=== PATIENT | male | born 1960 | race African-American/Black ===

== ENCOUNTER 2017-09-08 07:12 | Emergency (ER) | payer SELFPAY ==
[~2017-09-08] VITALS: Ht 185.4 cm; Wt 80.0 kg
[2017-09-08] MEDS ORDERED: MOTRIN400 MG PO (07:56)
[2017-09-08] MEDS ORDERED: VOLTAREN1%GEL TOP (07:56)
[2017-09-08 09:11] VITALS: BP 146/89
== END 2017-09-08 09:15 | disposition home or self-care (01) | DRG 556 ==
LOC: ED 07:12
DX: M25.561 Pain in right knee (principal); I10 Essential (primary) hypertension; F17.210 Nicotine dependence, cigarettes, uncomplicated

== ENCOUNTER 2018-07-20 09:17 | Emergency (ER) | payer SELFPAY ==
[~2018-07-20] VITALS: Ht 185.4 cm; Wt 67.0 kg
[~2018-07-20 09:17] MED LIST: MOTRIN400 MG PO; VOLTAREN1%GEL TOP
[2018-07-20 10:33] LABS: HEMATOCRIT 42.4 % (39.0-50.0); HEMOGLOBIN 14.3 g/dl (14.0-18.0); IMMATURE GRANULOCYTES 0.3 % (0.0-5.0); MEAN CELL VOLUME 90.8 fL CALC (80.0-100.0); MEAN CORPUSCULAR HGB 30.6 pG CALC (26.0-32.0); MEAN CORPUSCULAR HGB CONC 33.7 g/L CALC (32.0-36.0); NEUT# 3.88 thou/uL (1.82-7.42); RED BLOOD COUNT 4.67 mill/uL (4.70-6.10); RED CELL DISTRI WIDTH 13.8 % (11.5-15.5)
[2018-07-20 10:44] LABS: ANION GAP 15 (6-22 (CALC)); BUN 12 mg/dL (9-20); BUN/CREATININE RATIO 14 (12-20 (CALC)); CARBON DIOXIDE 23 mmol/l (22-30); CHLORIDE 105 mmol/l (95-108); CREATININE 0.9 mg/dL (0.7-1.3); GFR > 60 ML/MIN (>=60 (CALC)); GFR FOR AFR.AMER. > 60 ML/MIN (>=60 (CALC)); POTASSIUM 4.3 mmol/l (3.5-5.1); SODIUM 139 mmol/l (137-146)
[2018-07-20] MEDS ORDERED: AMLODIPINE5 MG PO (11:19)
[2018-07-20 11:23] VITALS: BP 158/95
== END 2018-07-20 11:30 | disposition home or self-care (01) | DRG 305 ==
LOC: ED 09:17
PROVIDERS: Family Medicine
DX: I10 Essential (primary) hypertension (principal); F17.210 Nicotine dependence, cigarettes, uncomplicated

== ENCOUNTER 2020-12-29 07:26 | Observation (INO) | payer SELFPAY ==
[~2020-12-29] VITALS: Ht 185.4 cm; Wt 82.0 kg
[2020-12-29] VITALS (11 sets, daily range): BP systolic 126–159; BP diastolic 58–87
[~2020-12-29 07:26] MED LIST changes: +AMLODIPINE5 MG PO
[2020-12-29 08:50] LABS: IMMATURE GRANULOCYTES 0.8 % (0.0-5.0); MEAN CORPUSCULAR HGB 15.9 pG CALC (26.0-32.0); MEAN CORPUSCULAR HGB CONC 25.7 g/dL CAL (32.0-36.0); NEUT# 2.38 thou/uL (1.82-7.42); RED BLOOD COUNT 3.64 mill/uL (4.70-6.10); RED CELL DISTRI WIDTH 19.1 % (11.5-15.5)
[2020-12-29 08:51] LABS: HEMATOCRIT 22.6 % (39.0-50.0); MEAN CELL VOLUME 62.1 fL CALC (80.0-100.0)
[2020-12-29 08:52] LABS: HEMOGLOBIN 5.8 g/dl (14.0-18.0)
[2020-12-29 09:27] LABS: ALBUMIN 4.1 g/dL (3.2-5.0); ALKALINE PHOSPHATASE 80 u/l (38-126); ANION GAP 18 (6-22 (CALC)); BILIRUBIN, TOTAL 0.9 mg/dL (0.0-1.4); BUN 11 mg/dL (8-23); BUN/CREATININE RATIO 14 (12-20 (CALC)); CARBON DIOXIDE 22 mmol/l (22-30); CHLORIDE 107 mmol/l (95-108); CREATININE 0.8 mg/dL (0.7-1.3); GFR > 60 ML/MIN (>=60 (CALC)); GFR FOR AFR.AMER. > 60 ML/MIN (>=60 (CALC)); LIPASE 436 u/l (23-300); POTASSIUM 3.3 mmol/l (3.5-5.1); SGOT/AST 46 u/l (19-48); SODIUM 144 mmol/l (137-146); TOTAL PROTEIN 7.7 g/dL (6.3-8.2)
[2020-12-29 10:35] LABS: URINE BILIRUBIN - DIPSTICK NEGATIVE (NEGATIVE); URINE BLOOD DIPSTICK NEGATIVE (NEGATIVE); URINE COLOR YELLOW; URINE GLUCOSE - DIPSTICK NEGATIVE (NEGATIVE); URINE KETONE NEGATIVE (NEGATIVE); URINE LEUK ESTERASE NEGATIVE (NEGATIVE); URINE PROTEIN - DIPSTICK NEGATIVE (NEG-TRACE); URINE UROBILINOGEN - DIPSTICK 0.2 E.U./dL (0.2)
[2020-12-29 10:41] LABS: URINE NITRITE - DIPSTICK NEGATIVE (Negative)
[2020-12-29 11:20] LABS: ACT PARTIAL THROMBO TIME 24.1 SECONDS (20.0-32.5); PROTHROMBIN TIME 10.3 SECONDS (9.0-12.5)
== END 2020-12-29 16:00 | disposition left against medical advice (07) | DRG 812 ==
LOC: ED 07:26 → ED-I 11:00 → ED 11:14 → MS2 11:15
PROVIDERS: ADMIT Internal Medicine; ATTEND Internal Medicine
PROC: 30233N1 Transfusion of Nonautologous Red Blood Cells into Peripheral Vein, Percutaneous Approach (ICD-10-PCS; principal; 2020-12-29)
PROC: 30233N1 Transfusion of Nonautologous Red Blood Cells into Peripheral Vein, Percutaneous Approach (ICD-10-PCS; 2020-12-29)
DX: D64.9 Anemia, unspecified (principal); F10.10 Alcohol abuse, uncomplicated; I10 Essential (primary) hypertension; J44.9 Chronic obstructive pulmonary disease, unspecified; F17.200 Nicotine dependence, unspecified, uncomplicated; Z20.822 Contact with and (suspected) exposure to COVID-19
CPT/HCPCS: P9016; Q9967

== ENCOUNTER 2021-08-25 08:38 | Observation (INO) | payer SELFPAY ==
[~2021-08-25] VITALS: Ht 185.4 cm; Wt 91.8 kg
[2021-08-25] VITALS (11 sets, daily range): BP systolic 107–155; BP diastolic 63–90
[2021-08-25 09:15] LABS: HEMATOCRIT 26.7 % (39.0-50.0); IMMATURE GRANULOCYTES 0.2 % (0.0-5.0); MEAN CORPUSCULAR HGB 16.8 pG CALC (26.0-32.0); MEAN CORPUSCULAR HGB CONC 26.2 g/dL CAL (32.0-36.0); NEUT# 2.66 thou/uL (1.82-7.42); RED BLOOD COUNT 4.17 mill/uL (4.70-6.10); RED CELL DISTRI WIDTH 19.5 % (11.5-15.5)
[2021-08-25 09:42] LABS: ALBUMIN 4.4 g/dL (3.2-5.0); ALKALINE PHOSPHATASE 96 u/l (38-126); ANION GAP 16 (6-22 (CALC)); BILIRUBIN, TOTAL 0.7 mg/dL (0.0-1.4); BUN 8 mg/dL (8-23); BUN/CREATININE RATIO 11 (12-20 (CALC)); CARBON DIOXIDE 25 mmol/l (22-30); CHLORIDE 106 mmol/l (95-108); CREATININE 0.8 mg/dL (0.7-1.3); ETHYL ALCOHOL 290 mg/dl (0-30); GFR FOR AFR.AMER. > 60 ML/MIN (>=60 (CALC)); GFR OTHER RACES > 60 ML/MIN (>=60 (CALC)); SGOT/AST 67 u/l (19-48); SODIUM 143 mmol/l (137-146); TOTAL PROTEIN 8.3 g/dL (6.3-8.2)
--- NOTE | 2021-08-25 09:42 | NUR ---
Reassessment of patient completed. No distress noted.
--- NOTE | 2021-08-25 10:52 | NUR ---
Reassessment of patient completed. No distress noted.
--- NOTE | 2021-08-25 11:30 | NUR ---
LYING IN BED RESTING QUIETLY WITH EYES CLOSED. RESPIRATIONS EVEN AND UNLABORD. NO ACUTE DISTESS NOTED. DENIES CHEST PAIN, DIZZINESS, OR SHORTNESS OF BREATH. CALL LIGHT IN REACH. PATIENT INFORMED OF ADMISSION. HE IS AWARE AND AGREEABLE WITH PLAN OF CARE. NO ACUTE DISTRESS NOTED. WILL CONTINUE WITH PLAN OF CARE.
--- NOTE | 2021-08-25 12:00 | NUR ---
PT ARRIVED VIA WC WITH HOG TRADER. ASSESSMENT ALLOWED. TELE MONITOR INPLACE, CONTINOUS MONITORING PER ED. IV: 20 RAC INFUSING BANANA BAG PER EMAR. NEW IV ESTABLISHED 20 LAC. ABLE TO GET BLOOD RETURN. RIGHT HAND INDEX DIGIT ABSENT. PT A&OX3. ABLE TO MOVE ALL EXTREMETIES AND OBEY COMMANDS. STATES NO FEELINGS OF CHEST PAIN. OREINTATED PT TO ROOM/ CALL MCCALL LIGHT SYSTEM. FALL/SAFTEY PRECAUTION IN PLACE. CALL LIGHT WITHIN REACH
--- NOTE | 2021-08-25 12:15 | NUR ---
PATIENT ADMITTED TO FLOOR. BEDSIDE REPORT GIVEN TO NURSE. PATIENT TAKEN UP TO FLOOR VIA WC. Reassessment of patient completed. No distress noted.
--- NOTE | 2021-08-25 14:50 | NUR ---
BLOOD TRANSFUSION BEGAN. EDUACTED PT ON BLOOD TRANSFUSION/ ADVERSE REACTIONS. IV 20 LAC FLUSHED. TELE MONITOR IN PLACE. CONTINOUS MONITORING PER ED. PT ALERT TO PPT. FALL/SAFTEY PRECAUTION IN PLACE. CALL LIGHT WITHINR EACH
--- NOTE | 2021-08-25 15:07 | NUR ---
15 MIN ASSESSMENT PERFROMED. PT STATES NO PAIN/NV/ NO FEELING OF SOB. VITALS OBTAINED. BP: 152/90, RR: 18, HR: 94, TEMP: 97.5. FALL/SAFTEY PERCAUTION IN PLACE. CALL LIGHT WITHIN REACH
--- NOTE | 2021-08-25 17:40 | NUR ---
BLOOD TRANSFUSION ENDED. PT STATES NO PAIN. VITALS BP: 148/85, HR: 90, RR: 18 TEMP: 98.0. FALL/SAFTEY PRECAUTION IN [place]. CALL LIGHT WITHIN REACH
--- NOTE | 2021-08-25 19:08 | NUR ---
Patient decides to leave AMA. Multiple attempts made to ecourage patient to remain here for continued treatment. Explained to patient all risks of leaving against medical advice including . Pt verbalized understanding of all risks. Pt also encouraged to return to [facility] at any time, especially if symptoms continue or become worse. Pt verbalized understanding. RESOURCES GIVEN FOR FURTHERING TREATMENT
== END 2021-08-25 19:00 | disposition left against medical advice (07) | DRG 313 ==
LOC: ED 08:38 → ED-I 10:00 → ED 10:39 → MS2 10:40
PROVIDERS: Family Medicine; ADMIT Hospitalist; ATTEND Hospitalist
PROC: 30233N1 Transfusion of Nonautologous Red Blood Cells into Peripheral Vein, Percutaneous Approach (ICD-10-PCS; principal; 2021-08-25)
DX: R07.9 Chest pain, unspecified (principal); D64.9 Anemia, unspecified; R19.5 Other fecal abnormalities; I10 Essential (primary) hypertension; J44.9 Chronic obstructive pulmonary disease, unspecified; F10.10 Alcohol abuse, uncomplicated; F17.210 Nicotine dependence, cigarettes, uncomplicated; Z20.822 Contact with and (suspected) exposure to COVID-19
CPT/HCPCS: G0378; P9016; S0164

== ENCOUNTER 2021-09-22 07:20 | Emergency (ER) | payer SELFPAY ==
[~2021-09-22] VITALS: Ht 185.4 cm; Wt 83.6 kg
[2021-09-22 07:31] VITALS: BP 119/70
[2021-09-22 07:53] VITALS: BP 106/70
[2021-09-22 08:00] VITALS: BP 107/74
[2021-09-22 08:13] LABS: HEMATOCRIT 30.1 % (39.0-50.0); HEMOGLOBIN 8.4 g/dl (14.0-18.0); IMMATURE GRANULOCYTES 0.2 % (0.0-5.0); MEAN CELL VOLUME 67.5 fL CALC (80.0-100.0); MEAN CORPUSCULAR HGB 18.8 pG CALC (26.0-32.0); MEAN CORPUSCULAR HGB CONC 27.9 g/dL CAL (32.0-36.0); NEUT# 6.07 thou/uL (1.82-7.42); RED BLOOD COUNT 4.46 mill/uL (4.70-6.10); RED CELL DISTRI WIDTH 23.4 % (11.5-15.5)
[2021-09-22 08:18] LABS: ALBUMIN 4.1 g/dL (3.2-5.0); BILIRUBIN, TOTAL 0.7 mg/dL (0.0-1.4); CREATININE 1.5 mg/dL (0.7-1.3); POTASSIUM 3.7 mmol/l (3.5-5.1)
[2021-09-22 10:16] VITALS: BP 123/84
[2021-09-22 10:17] VITALS: BP 123/84
== END 2021-09-22 10:26 | disposition home or self-care (01) | DRG 552 ==
LOC: ED 07:20
PROVIDERS: Family Medicine
DX: M54.2 Cervicalgia (principal); M54.6 Pain in thoracic spine; M54.50 Low back pain, unspecified; R07.89 Other chest pain; R07.81 Pleurodynia; R10.84 Generalized abdominal pain; R51.9 Headache, unspecified; K44.9 Diaphragmatic hernia without obstruction or gangrene; J43.9 Emphysema, unspecified; D64.9 Anemia, unspecified; F10.10 Alcohol abuse, uncomplicated; I10 Essential (primary) hypertension; W19.XXXA Unspecified fall, initial encounter
CPT/HCPCS: Q9967

== ENCOUNTER 2022-05-02 14:14 | Emergency (ER) | payer SELFPAY ==
[~2022-05-02] VITALS: Ht 185.4 cm; Wt 78.0 kg
[2022-05-02] MEDS ORDERED: NAPROXEN500 MG PO (16:16)
[2022-05-02] MEDS ORDERED: PREDNISONE10 MG PO (16:16)
[2022-05-02 16:33] VITALS: BP 139/87
== END 2022-05-02 16:34 | disposition home or self-care (01) | DRG 556 ==
LOC: ED 14:14
DX: M25.561 Pain in right knee (principal); M25.562 Pain in left knee; J44.9 Chronic obstructive pulmonary disease, unspecified; I10 Essential (primary) hypertension; F17.210 Nicotine dependence, cigarettes, uncomplicated

== ENCOUNTER 2023-08-22 03:14 | Emergency (ER) | payer MEDICARE ==
[2023-08-22] VITALS (14 sets, daily range): BP systolic 144–176; BP diastolic 90–111
[~2023-08-22] VITALS: Ht 185.4 cm; Wt 70.0 kg
[~2023-08-22 03:14] MED LIST changes: +NAPROXEN500 MG PO; +PREDNISONE10 MG PO
[2023-08-22] MEDS ORDERED: KETOROLAC TROMETHAMINE 30 MG/ML SDV IV ONE (03:35)
[2023-08-22] MEDS ORDERED: traMADol HCL 50 MG/TAB PO ONE (03:35)
[2023-08-22] MEDS ORDERED: SODIUM CHLORIDE 0.9% 1,000 ML IV ONE (03:35)
[2023-08-22] MEDS ORDERED: ACETAMINOPHEN 500 MG TAB PO ONE (03:35)
[2023-08-22 03:57] LABS: EOS% 0.3 % (0-8); HEMATOCRIT 35.8 % (39.0-50.0); HEMOGLOBIN 11.5 g/dl (14.0-18.0); IMMATURE GRANULOCYTES 0.6 % (0.0-5.0); LYMPH% 14.2 % (15-41); MEAN CORPUSCULAR HGB 28.5 pG CALC (26.0-32.0); MEAN CORPUSCULAR HGB CONC 32.1 g/dL CAL (32.0-36.0); MONO% 12.2 % (2-13); NEUT# 4.93 thou/uL (1.82-7.42); NEUT% 72.7 % (42-76); RED BLOOD COUNT 4.04 mill/uL (4.70-6.10); RED CELL DISTRI WIDTH 17.2 % (11.5-15.5)
[2023-08-22 04:08] LABS: MEAN CELL VOLUME 88.6 fL CALC (80.0-100.0)
[2023-08-22 04:10] LABS: ALBUMIN 4.1 g/dL (3.2-5.0); BILIRUBIN, TOTAL 0.9 mg/dL (0.2-1.3); CREATININE 0.7 mg/dL (0.7-1.3); POTASSIUM 3.6 mmol/l (3.5-5.1); TOTAL PROTEIN 7.4 g/dL (6.3-8.2)
[2023-08-22] MEDS ORDERED: CELEBREX200 M1 PO (06:51)
== END 2023-08-22 06:59 | disposition home or self-care (01) ==
LOC: ED 03:14
PROVIDERS: Family Medicine
DX: M47.812 Spondylosis without myelopathy or radiculopathy, cervical region (principal); F10.129 Alcohol abuse with intoxication, unspecified; Y90.6 Blood alcohol level of 120-199 mg/100 ml; I10 Essential (primary) hypertension; J44.9 Chronic obstructive pulmonary disease, unspecified; F17.200 Nicotine dependence, unspecified, uncomplicated

== ENCOUNTER 2023-10-19 07:23 | Inpatient (IN) | payer MEDICARE ==
[2023-10-19] VITALS (9 sets, daily range): BP systolic 110–152; BP diastolic 77–93
[~2023-10-19] VITALS: Ht 185.4 cm; Wt 66.2 kg
[~2023-10-19 07:23] MED LIST changes: +CELEBREX200 M1 PO
--- NOTE | 2023-10-19 07:25 | NUR ---
PT BROUGHT BACK TO ER ROOM 1 VIA WHEELCHAIR, PTS SPOUSE AT BEDSIDE
[2023-10-19 08:12] LABS: BASO% 0.5 % (0-3); EOS% 0.7 % (0-8); IMMATURE GRANULOCYTES 0.5 % (0.0-5.0); LYMPH% 15.3 % (15-41); MEAN CELL VOLUME 91.4 fL CALC (80.0-100.0); MEAN CORPUSCULAR HGB 29.5 pG CALC (26.0-32.0); MEAN CORPUSCULAR HGB CONC 32.3 g/dL CAL (32.0-36.0); MONO% 12.2 % (2-13); NEUT# 4.35 thou/uL (1.82-7.42); NEUT% 70.8 % (42-76); RED BLOOD COUNT 2.78 mill/uL (4.70-6.10); RED CELL DISTRI WIDTH 16.7 % (11.5-15.5)
[2023-10-19 08:28] LABS: ALBUMIN 4.3 g/dL (3.2-5.0); BILIRUBIN, TOTAL 0.8 mg/dL (0.2-1.3); POTASSIUM 3.6 mmol/l (3.5-5.1); TOTAL PROTEIN 7.7 g/dL (6.3-8.2)
[2023-10-19 08:34] LABS: HEMATOCRIT 25.4 % (39.0-50.0); HEMOGLOBIN 8.2 g/dl (14.0-18.0)
[2023-10-19] MEDS ORDERED: TOPROL XL25 MG PO (09:30)
[2023-10-19] MEDS ORDERED: ALBUTEROL108 MCG/AC (09:30)
[2023-10-19] MEDS ORDERED: ASPIRIN LOW DOS81 M1 PO (09:30)
[2023-10-19] MEDS ORDERED: ATORVASTATIN CA20 MG PO (09:31)
[2023-10-19] MEDS ORDERED: TRELEGY ELLIPTA1 AER (09:31)
[2023-10-19] MEDS ORDERED: PANTOPRAZOLE Sodium 80 MG in SODIUM CHLORIDE 0.9% 80 ML IV ONE (09:40)
[2023-10-19] MEDS ORDERED: FUROSEMIDE 40 MG/4 ML SDV IV ONE (09:40)
[2023-10-19] MEDS ORDERED: chlordiazePOXIDE HCL 25 MG CAP PO PRN (09:45)
[2023-10-19] MEDS ORDERED: LORazepam 2 MG/ML IV PRN (09:45)
[2023-10-19] MEDS ORDERED: ACETAMINOPHEN 325 MG/TAB PO PRN (09:50)
[2023-10-19] MEDS ORDERED: SODIUM CHLORIDE 0.9% 1,000 ML IV PRN (09:50)
[2023-10-19] MEDS ORDERED: MAGNESIUM HYDROXIDE 30 ML UDC PO PRN (09:50)
--- NOTE | 2023-10-19 10:12 | NUR ---
REPORT RECEIVED FROM VERÓNICA IN ED, PT ARRIVED ON UNIT @ 1012 TRANSPORTEDVA W/C AND TRANSFERRED TO BED, ALERT AND ORIENTED X 3, ORIENTED TO ROOM AND CALL MCCALL, DENIES PAIN, TELE MONITOR IN PLACE, CALL MCCALL IN REACH AND BED LOCKED IN LOWEST POSITION.
--- NOTE | 2023-10-19 10:22 | NUR ---
PT REPORT TO JIMENA RIDDLE. PT TRANSPORTED VIA WC TO ROOM 268. VSS. TRANSFERRED CARE OF PT.
[2023-10-19 10:33] LABS: URINE BLOOD DIPSTICK Moderate (NEGATIVE); URINE GLUCOSE - DIPSTICK Negative (NEGATIVE); URINE KETONE >=160 mg/dL (NEGATIVE); URINE NITRITE - DIPSTICK Negative (Negative); URINE PH 6.5 (4.5-8.0); URINE PROTEIN - DIPSTICK 100 mg/dL (NEG-TRACE); URINE SPECIFIC GRAVITY 1.015
[2023-10-19 10:36] LABS: URINE COLOR Yellow; URINE LEUK ESTERASE Small (NEGATIVE)
[2023-10-19 10:37] LABS: URINE BACTERIA FEW hpf; URINE EPITHELIAL CELLS FEW EPI/hpf (0-FEW); URINE MUCUS FEW hpf (NONE-FEW)
[2023-10-19 10:40] LABS: ACT PARTIAL THROMBO TIME 26.5 SECONDS (20.0-32.5); INTERNATIONAL NORMALIZED RATIO 1.1 RATIO (0.7-1.3)
[2023-10-19 10:44] LABS: PROTHROMBIN TIME 10.4 SECONDS (9.0-12.5)
[2023-10-19] MEDS ORDERED: MULTIPLE VITAMIN 10 ML,THIAMINE HCL 100 MG in DEXTROSE 5% / 0.9% NACL 1,000 ML IV SCH (11:00)
[2023-10-19] MEDS ORDERED: SODIUM CHLORIDE 0.9% 1,000 ML IV SCH (12:00)
[2023-10-19] MEDS ORDERED: NICOTINE TRANSDERMAL 21 MG/PATCH TD SCH (13:00)
[2023-10-19 13:58] LABS: HEMATOCRIT 24.9 % (39.0-50.0)
--- NOTE | 2023-10-19 19:40 | NUR ---
PATIENT IS IN ROOM RESTING IN BED. ASSESSMENT COMPLETE. PATIENT RESPONDS TO VERBAL STIMULI. PATIENT IS A&O X3. PATIENT IS BLIND. NO VISUAL SIGNS OF DISTRESS NOTED. EQUAL UNLABORED BREATHING, LUNG SOUNDS CLEAR ON AUSCULTATION. PATIENT VOIDED DARK YELLOW URINE. BED AT LOWEST POSITION. CALL LIGHT WITH IN REACH.
[2023-10-19] MEDS ORDERED: Pantoprazole Sodium 40 MG VIAL (Protonix) IV SCH (21:00)
[2023-10-19] MEDS ORDERED: PANTOPRAZOLE Sodium 80 MG in SODIUM CHLORIDE 0.9% 80 ML IV SCH (21:00)
--- NOTE | 2023-10-19 23:55 | NUR ---
PATIENT IN BED RESTING WITH EYES CLOSED. PATIENT RESPONDS TO VERBAL STIMULI. PATIENT CAN MAKE NEEDS KNOWN. NONE NEEDED AT THIS TIME.. SAFTY PRECAUTIONS IN PLACE. BED AT LOWEST POSITION. CALLLIGHT WITHIN REACH.
[2023-10-20] VITALS (16 sets, daily range): BP systolic 128–149; BP diastolic 85–97
--- NOTE | 2023-10-20 04:05 | NUR ---
PATIENT IN BED RESTING. PATIENT RESPONDS TO VERBAL STIMILI. PATIENT CAN MAKE NEEDS KNOWN. ASSISTED PATIENT TO RESTROOM STAND BY ASSISST. PATIENT URINE CLEAR YELLOW. ASSISTED PATIENT BACK TO BED. BED AT LOWEST POSITIOIN. CALL LIGHT WITH IN REACH.
[2023-10-20 05:14] LABS: BASO% 0.2 % (0-3); EOS% 0.6 % (0-8); HEMATOCRIT 23.7 % (39.0-50.0); HEMOGLOBIN 7.6 g/dl (14.0-18.0); IMMATURE GRANULOCYTES 0.4 % (0.0-5.0); LYMPH% 13.8 % (15-41); MEAN CELL VOLUME 92.9 fL CALC (80.0-100.0); MEAN CORPUSCULAR HGB 29.8 pG CALC (26.0-32.0); MEAN CORPUSCULAR HGB CONC 32.1 g/dL CAL (32.0-36.0); MONO% 10.8 % (2-13); NEUT# 3.56 thou/uL (1.82-7.42); NEUT% 74.2 % (42-76); RED BLOOD COUNT 2.55 mill/uL (4.70-6.10); RED CELL DISTRI WIDTH 16.9 % (11.5-15.5)
[2023-10-20 05:54] LABS: BILIRUBIN, TOTAL 0.9 mg/dL (0.2-1.3); CHOLESTEROL HDL RATIO 2.7 (<4.4 (CALC)); CREATININE 0.7 mg/dL (0.7-1.3); POTASSIUM 3.2 mmol/l (3.5-5.1); TOTAL PROTEIN 6.2 g/dL (6.3-8.2)
[2023-10-20 06:02] LABS: ALBUMIN 3.3 g/dL (3.2-5.0); MAGNESIUM 1.1 mg/dL (1.6-2.3)
--- NOTE | 2023-10-20 07:59 | NUR ---
NURSE TO NURSE REPORT. PT IS RESTING WITH EYE CLOSE IN THE BED. PLAN OF CARE IS ONGOING.
[2023-10-20] MEDS ORDERED: THIAMINE HCL 100 MG TAB PO SCH (09:00)
[2023-10-20] MEDS ORDERED: FOLIC ACID 1 MG/TAB PO SCH (09:00)
[2023-10-20] MEDS ORDERED: MULTIPLE VITAMIN TABLET PO SCH (09:00)
[2023-10-20] MEDS ORDERED: POTASSIUM CHLORIDE 20 MEQ/TAB PO SCH (09:00)
[2023-10-20] MEDS ORDERED: SODIUM CHLORIDE 0.9% 500 ML IV ONE (09:15)
[2023-10-20] MEDS ORDERED: MAGNESIUM SULFATE HEPTAHYDRATE 100 ML IV SCH (10:00)
[2023-10-20] MEDS ORDERED: Peg 3350-POTASSIUM CHLORIDE-So 4,000 ML BTL PO SCH (11:00)
[2023-10-20] MEDS ORDERED: FUROSEMIDE 40 MG/4 ML SDV IV SCH (12:00)
--- NOTE | 2023-10-20 15:15 | NUR ---
Pt is a&ox4 able to make his need known. pt denies pain and show no sign of distress. meds was given per mar order. K and Mag was replace. Blood xfusing is going. Consent form are sign and in the chart. call light and personal item with in reach. safety measure are in place. educated pt and spouse on the plan of care.
--- NOTE | 2023-10-20 18:42 | NUR ---
Pt is refusing richar teixeira notify.
--- NOTE | 2023-10-20 19:47 | NUR ---
THIS PROOFER PREPRESS ENCOURAGED GO LITELY, AND STRESSED THE IMPORTANCE ON FINISHING IT. PT STATES "IF THE DOCTOR CAN'T DO THE PROCEDURE WITHOUT ME DRINKING IT, THEN SO BE IT. IM NOT DRINKING IT. AFTER THIS BLOOD IS DONE INFUSING IM GOING TO GET SLEEP. IF I DRINK THAT I WON'T BE ABLE TO SLEEP". WILL RE-ATTEMPT TO ENCOURAGE PT TO FINISH BOWEL PREP.
--- NOTE | 2023-10-20 20:15 | NUR ---
REPORT RECEIVED FROM [facility] NURSE. KAY HESS. PT RESTING IN BED WATCHING TELEVISION. PT IS A&O X3, AND ABLE TO MAKE NEEDS KNOWN. BLOOD TRANSFUSING AT THIS TIME, NO ADVERSE REACTIONS OR S&S OF DISTRESS NOTED. VSS. PT STATES THAT HIS LAST BM WAS TODAY, 10-20-2023. LUNG SOUNDS CLEAR UPON AUSCULTATION. TELE MONITOR REMAINS IN PLACE. PT IS ON ROOM AIR. BOWEL SOUNDS ACTIVE X4 QUADRANTS. JOANIE HOSE NOTED TO BLE. PERIPHERAL PULSES STRONG. PT STILL REFUSING TO DRINK BOWEL PREP AFTER MULTIPLE ATTEMPTS AT EDUCATION. PT DENIES ANY PAIN. NO N/V/D NOTED. PT DOES NOT VOICE ANY CONCERNS AT THIS TIME. INFUSION GOING PER ORDERS. BOTH IV SITES INTACT AND CLEAN, FLUSHING WELL. PT EDUCATED ON POC AND MEDICATION SCHEUDLE. CALL LIGHT IN REACH, AND SAFETY PRECAUTIONS IN PLACE.
--- NOTE | 2023-10-20 20:30 | NUR ---
PROVIDER NOTIFIED AT THIS TIME OF PT REFUSING TO DRINK BOWEL PREP AND STATING THAT HE IS NOT DOING A COLONOSCOPY. PT WILLING TO DO EGD. MD STATES TO KEEP PT NPO AFTER MIDNIGHT, AND OBTAIN CONSENT FOR EGD ONLY.
--- NOTE | 2023-10-20 22:45 | NUR ---
THIS CLAIM SPECIALIST ASSISTED PT TO BATHROOM. PT AMBULATES WITH UNSTEADY GAIT. BM AT THIS TIME, BLACK TARRY STOOL NOTED, VERY LOOSE. PT ASSISTED BACK TO BED. WILL CONTINUE TO MONITOR.
[2023-10-21] VITALS (11 sets, daily range): BP systolic 117–155; BP diastolic 74–102
--- NOTE | 2023-10-21 00:10 | NUR ---
PT RESTING IN BED WITH EYES CLOSED. RESPIRATIONS ARE EVEN AND UNLABORED. PT IS EASILY AROUSABLE. THIS SUPERVISOR COUNSELING AND GUIDANCE ASSITED PT TO BATHROOM @ 2230, GAIT UNSTEADY. NO COMPLAINTS OFFERED AT THIS TIME. NO S&S OF DISTRESS NOTED. TELE MONITOR REMAINS IN PLACE. INFUSIONS GOING PER ORDERS. CALL LIGHT IN REACH, AND SAFETY PRECAUTIONS IN PLACE.
--- NOTE | 2023-10-21 04:10 | NUR ---
ASSIGNED DIESEL PILE DRIVER OPERATOR ASSISTED PT TO BATHROOM. PT TOLERATED WELL. NO COMPLAINTS VOICED FROM PT AT THIS TIME. TELE MONITOR REMAINS IN PLACE. VSS. NO S&S OF DISTRESS NOTED. PT ASSISTED BACK TO BED, APPEARS COMFORTABLE. CALL LIGHT IN REACH, AND SAFETY PRECAUTIONS IN PLACE.
[2023-10-21 06:28] LABS: BASO% 0.2 % (0-3); EOS% 0.6 % (0-8); LYMPH% 8.8 % (15-41); MEAN CELL VOLUME 92.6 fL CALC (80.0-100.0); MEAN CORPUSCULAR HGB 30.9 pG CALC (26.0-32.0); MEAN CORPUSCULAR HGB CONC 33.3 g/dL CAL (32.0-36.0); MONO% 11.3 % (2-13); NEUT# 4.01 thou/uL (1.82-7.42); NEUT% 78.1 % (42-76); RED BLOOD COUNT 3.4 mill/uL (4.70-6.10); RED CELL DISTRI WIDTH 15.6 % (11.5-15.5)
[2023-10-21 06:44] LABS: HEMATOCRIT 31.5 % (39.0-50.0); HEMOGLOBIN 10.5 g/dl (14.0-18.0)
[2023-10-21 06:49] LABS: ALBUMIN 3.9 g/dL (3.2-5.0); CREATININE 0.6 mg/dL (0.7-1.3); POTASSIUM 3.1 mmol/l (3.5-5.1)
[2023-10-21 06:51] LABS: BILIRUBIN, TOTAL 1.8 mg/dL (0.2-1.3); MAGNESIUM 1.6 mg/dL (1.6-2.3)
--- NOTE | 2023-10-21 07:30 | NUR ---
Report received from eating disorder specialist nurse. Patient is resting in bed, denies any pain. A&Ox4, on room air, NSR on tele monitor, VS WNL, IV fluids and protonix drip running as ordered. Plan for patient to have EGD today. All needs addressed, call light within reach.
[2023-10-21] MEDS ORDERED: POTASSIUM CHLORIDE 20 MEQ/TAB PO SCH (08:00)
--- NOTE | 2023-10-21 08:00 | NUR ---
OR staff here to take patient down for EGD.
[2023-10-21] MEDS ORDERED: Pantoprazole Sodium 40 MG VIAL (Protonix) IV SCH (10:00)
--- NOTE | 2023-10-21 10:00 | NUR ---
Patient is back from OR.
--- NOTE | 2023-10-21 12:00 | NUR ---
Patient is sitting on side of bed eating lunch, denies any pain. States that he is ready to go home. A&Ox4, on room air, NSR on tele monitor, VS WNL. All needs addressed, call light within reach.
--- NOTE | 2023-10-21 16:00 | NUR ---
Patient is resting in bed, denies any pain. A&Ox4, on room air, NSR on tele monitor, family at bedside. All needs addressed, call light within reach.
--- NOTE | 2023-10-21 20:10 | NUR ---
REPORT RECIEVED FROM [facility] NURSE. ILANA HESS. PT RESTING IN BED ON LEFT SIDE. PT IS A&OX3, AND ABLE TO MAKE NEEDS KNOWN. NO COMPLAINTS OFFERED FROM PT AT THIS TIME. MILD AGITATION AND ANXIETY NOTED FROM PT. PT DENIES ANY NAUSEA, VOMITING, OR PAIN. BELCHING/BURPING NOTED. PT IS ON ROOM AIR. TELE MONITOR REMAINS IN PLACE. JOANIE HOSE NOTED TO BLE. IV SITES CLEAN AND INTACT. LUNG SOUNDS CLEAR UPON AUSCULTATION. DARK YELLOW URINE NOTED IN URINAL. BOWEL SOUNDS ACTIVE X4 QUADRANTS, ABDOMEN IS SOFT. PT STATES THAT HIS LAST BM WAS TODAY, 9-24. PT EDUCATED ON POC AND MEDICATION SCHEULE. CALL LIGHT IN REACH, AND SAFETY PRECAUTIONS IN PLACE.
--- NOTE | 2023-10-22 00:10 | NUR ---
PT RESTING IN BED ON (R) SIDE WITH EYES CLOSED. RESPIRATIONS ARE EVEN AND UNLABORED. PT IS EASILY AROUSABLE. TELE MONITOR REMAINS IN PLACE. NO COMPLAINTS OFFERED. NO S&S OF DISTRESS AT THIS TIME. CALL LIGHT IN REACH, AND SAFETY PRECAUTIONS IN PLACE.
[2023-10-22 00:29] VITALS: BP 117/81
--- NOTE | 2023-10-22 04:10 | NUR ---
PT RESTING IN BED WATCHING TELEVISION. PT APPEARS COMFORTBALE, DOESN'T VOICE ANY CONCERNS. PT DENIES PAIN. METER TESTER PRIMARY ASSISTED PT IN CHAGNING CHANNEL ON TELEVISION. NO S&S OF DISTRESS NOTED. TELE MONITOR REMAINS IN PLACE. CALL LIGHT IN REACH, AND SAFETY PRECAUTIONS IN PLACE.
[2023-10-22 05:03] VITALS: BP 128/85
[2023-10-22 05:47] LABS: BASO% 0.2 % (0-3); EOS% 1.2 % (0-8); HEMATOCRIT 30.6 % (39.0-50.0); HEMOGLOBIN 9.6 g/dl (14.0-18.0); IMMATURE GRANULOCYTES 1.2 % (0.0-5.0); LYMPH% 13.5 % (15-41); MEAN CORPUSCULAR HGB 32.7 pG CALC (26.0-32.0); MEAN CORPUSCULAR HGB CONC 31.4 g/dL CAL (32.0-36.0); MONO% 16.8 % (2-13); NEUT# 2.79 thou/uL (1.82-7.42); NEUT% 67.1 % (42-76); RED BLOOD COUNT 2.94 mill/uL (4.70-6.10)
[2023-10-22 05:54] LABS: MEAN CELL VOLUME 104.1 fL CALC (80.0-100.0)
[2023-10-22 06:12] LABS: BILIRUBIN, TOTAL 1.3 mg/dL (0.2-1.3); CREATININE 0.6 mg/dL (0.7-1.3); MAGNESIUM 1.3 mg/dL (1.6-2.3); POTASSIUM 3.3 mmol/l (3.5-5.1); TOTAL PROTEIN 5.9 g/dL (6.3-8.2)
[2023-10-22 07:21] VITALS: BP 150/88
[2023-10-22 07:43] VITALS: BP 150/88
--- NOTE | 2023-10-22 07:55 | NUR ---
SHIFT CHANGE REPORT, PT AWAKE ALERT AND ORIENTED RESTING IN BED, STATES HE FEELS GOOD AND IS READY TO GO HOME, TELE MONITOR IN PLACE, TEDS IN PLACE, CALL MCCALL IN REACH AND BED LOCKED IN LOWEST POSITION.
[2023-10-22] MEDS ORDERED: MAGNESIUM SULFATE HEPTAHYDRATE 100 ML IV SCH (08:30)
--- NOTE | 2023-10-22 08:47 | NUR ---
PT SAID DR KURTZ TOLD HIM HE CAN GO HOME NOW AND THAT HE WILL SEND SOMEONE TO REMOVE MONITOR AND IV CATHETER, HE HAS REFUSED ALL HIS MEDICATTION AT THIS TIME STATING "I REFUSED TO TAKE ANYTHING, I'M GOING BY WHAT THE DOCTOR SAID, I' GOING BY WHAT HE SAID, I' GOING HOME" NURSE INFORMED PT OF PROCESS BUT HE REFUSED TO UNDERSTAND AND IS ADAMANT ABOUT LEAVING NOW, COMPLAINING HE HAS BEEN IN THE BED ALL THESE DAYS AND HE IS TIRED OF IT NOW AND JUST WANTS TO LEAVE WITHOUT TAKING HIS MEDICATION.
[2023-10-22] MEDS ORDERED: POTASSIUM CHLORIDE 20 MEQ/TAB PO SCH (09:00)
[2023-10-22] MEDS ORDERED: PROTONIX40 M2 PO (09:13)
--- NOTE | 2023-10-22 10:34 | NUR ---
Discharge instructions given. Patient verbalizes understanding of same. Discharged in stable condition via Wheelchair to Home with spouse. All belongings sent with pt.
== END 2023-10-22 10:33 | disposition home or self-care (01) | DRG 812 ==
LOC: ED 07:23 → ED-I 08:50 → ED 09:16 → MS2 09:16
PROVIDERS: Family Medicine; Nurse Practitioner Family; ADMIT Student in an Organized Health Care Education/Training Program; ATTEND Internal Medicine
PROC: 30233N1 Transfusion of Nonautologous Red Blood Cells into Peripheral Vein, Percutaneous Approach (ICD-10-PCS; principal; 2023-10-20)
PROC: 30233N1 Transfusion of Nonautologous Red Blood Cells into Peripheral Vein, Percutaneous Approach (ICD-10-PCS; 2023-10-20)
PROC: 0DB98ZX Excision of Duodenum, Via Natural or Artificial Opening Endoscopic, Diagnostic (ICD-10-PCS; 2023-10-21)
DX: D64.9 Anemia, unspecified (principal); E87.1 Hypo-osmolality and hyponatremia; K92.2 Gastrointestinal hemorrhage, unspecified; R31.9 Hematuria, unspecified; K29.80 Duodenitis without bleeding; I10 Essential (primary) hypertension; J43.9 Emphysema, unspecified; M15.9 Polyosteoarthritis, unspecified; F03.90 Unspecified dementia, unspecified severity, without behavioral disturbance, psychotic disturbance, mood disturbance, and anxiety; E78.5 Hyperlipidemia, unspecified; H26.9 Unspecified cataract; F17.200 Nicotine dependence, unspecified, uncomplicated; F10.129 Alcohol abuse with intoxication, unspecified; Y90.2 Blood alcohol level of 40-59 mg/100 ml; Z79.82 Long term (current) use of aspirin; Z91.199 Patient's noncompliance with other medical treatment and regimen due to unspecified reason; Z20.822 Contact with and (suspected) exposure to COVID-19
CPT/HCPCS: G0378; J2470; J3475; P9016

== ENCOUNTER 2024-01-05 06:48 | Day surgery (SDC) | payer MEDICARE ==
[~2024-01-05] VITALS: Ht 185.4 cm; Wt 73.0 kg
[~2024-01-05 06:48] MED LIST changes: +ALBUTEROL108 MCG/AC; +ASPIRIN LOW DOS81 M1 PO; +ATORVASTATIN CA20 MG PO; +METOPROLOL SUCC50 MG PO; +PROTONIX40 M2 PO; +TOPROL XL25 MG PO; +TRELEGY ELLIPTA1 AER
[2024-01-05] MEDS ORDERED: LACTATED RINGER'S 1,000 ML IV ONE ×2 (06:56→09:09)
[2024-01-05] MEDS ORDERED: SODIUM CHLORIDE 0.9% 0 ML IV ONE (06:56)
[2024-01-05] MEDS ORDERED: FAMOTIDINE 10MG/ML 2ML SDV IV ONE (06:56)
[2024-01-05 09:44] VITALS: BP 152/107
[2024-01-05] MEDS ORDERED: LACTATED RINGER'S 1,000 ML BAG IV ONE (13:53)
[2024-01-05] MEDS ORDERED: GLYCOPYRROLATE 0.2 MG/ML IV ONE (13:53)
[2024-01-05] MEDS ORDERED: LIDOCAINE HCL 2% 2ML SDV IV ONE (13:53)
[2024-01-05] MEDS ORDERED: PROPOFOL 200 MG/20 ML VIAL IV ONE (13:53)
[2024-01-05] MEDS ORDERED: ESMOLOL HCL 10 MG/ML VIAL IV ONE (13:53)
== END 2024-01-05 09:50 | disposition home or self-care (01) ==
LOC: ORM 06:48
PROVIDERS: ATTEND Surgery
PROC: 0DBN8ZX Excision of Sigmoid Colon, Via Natural or Artificial Opening Endoscopic, Diagnostic (ICD-10-PCS; principal; 2024-01-05)
PROC: 0DBL8ZX Excision of Transverse Colon, Via Natural or Artificial Opening Endoscopic, Diagnostic (ICD-10-PCS; 2024-01-05)
DX: D64.9 Anemia, unspecified (principal); D12.3 Benign neoplasm of transverse colon; K64.8 Other hemorrhoids; D12.5 Benign neoplasm of sigmoid colon; I10 Essential (primary) hypertension